=== PATIENT | female | born 1960 | race Caucasian/White ===

== ENCOUNTER 2017-04-01 06:52 | Day surgery (SDC) | payer MEDICAID ==
[2017-04-01] MEDS ORDERED: LR 1,000 ML IV ONE (07:30)
[2017-04-01] MEDS ORDERED: MIDAZOLAM 2 MG/2 ML VIAL IVP ONE (07:33)
--- NOTE | 2017-04-01 07:33 | PDANEPAE ---
ANE History of Present Illness presents for screening colonoscopy ANE Past Medical History - Cardiovascular History Hx Hypertension: No Hx Arrhythmias: No Hx Chest Pain: No Hx Coronary Artery / Peripheral Vascular Disease: No Hx CHF / Valvular Disease: No Hx Palpitations: No - Pulmonary History Hx COPD: No Hx Asthma/Reactive Airway Disease: No Hx Recent Upper Respiratory Infection: No Hx Oxygen in Use at Home: No Hx Sleep Apnea: No Sleep Apnea Screening Result - Last Documented: Negative - Neurologic History Hx Cerebrovascular Accident: No Hx Seizures: No Hx Dementia: No - Endocrine History Hx Diabetes: No Obesity: no - Renal History Hx Renal Disorders: No - Liver History Hx Hepatic Disorders: No - Neurological & Psychiatric Hx Hx Neurological and Psychiatric Disorders: No - Cancer History Hx Cancer: No - Congenital Disorder History Hx Congenital Disorders: No - GI History GERD: no Hx Gastrointestinal Disorders: No - Other Health History Other Health History: NONE - Chronic Pain History Chronic Pain: No - Surgical History Prior Surgeries: 2 acls, c sections hip replacement ANE Review of Systems Review of systems is: negative Review of Systems: - Exercise capacity METS (RN): 5 METS ANE Patient History - Allergies Allergies/Adverse Reactions: No Known Allergies Allergy (Verified 03/25/17 11:29) - Home Medications Home medications: home medication list seen and reviewed - Anes Hx Anes Hx: no prior problems - Smoking Hx Smoking Status: Former smoker - Family Anes Hx Family Hx Anesthesia Complications: none ANE Labs/Vital Signs - Vital Signs Blood Pressure: 152/98 Heart Rate: 76 Respiratory Rate: 16 O2 Sat (%): 96 Height: 167.64 cm Weight: 83.915 kg ANE Physical Exam - Airway Neck exam: FROM Mallampati Score: Class 1 Mouth exam: normal dental/mouth exam - Pulmonary Pulmonary: no respiratory distress - Cardiovascular Cardiovascular: regular rate and rhythym - ASA Status ASA Status: I ANE Anesthesia Plan Anesthesia Plan: GA with mask
[2017-04-01] MEDS ORDERED: PROPOFOL/EMULSION 500 MG/50 ML BOTTLE IV ONE (07:44)
--- NOTE | 2017-04-01 08:02 | PDGENHP ---
History & Physical Chief Complaint: Screening colonoscopy Relevant Physical Exam: GEN: NAD. Cardiac: RRR. Lungs: CTA B. Abd: Soft, nt, nd
[2017-04-01] MEDS ORDERED: OXYCODONE/APAP 5/325 TAB PO PRN (08:30)
[2017-04-01] MEDS ORDERED: ALBUTEROL 3 ML DEYVIAL IH PRN (08:30)
[2017-04-01] MEDS ORDERED: ACETAMINOPHEN 500 MG TAB PO PRN (08:30)
[2017-04-01] MEDS ORDERED: ONDANSETRON 4 MG/2 ML VIAL IVP PRN (08:30)
[2017-04-01] MEDS ORDERED: NALOXONE HCL 0.4 MG/ML INJ IVP PRN (08:30)
[2017-04-01] MEDS ORDERED: LABETALOL HCL 50 MG/10 ML SYR IVP PRN (08:30)
[2017-04-01] MEDS ORDERED: LR 500 ML IV PRN (08:30)
--- NOTE | 2017-04-01 08:32 | POSTANESTH ---
Post Anesthetic Evaluation Cardiovascular Status: Normal, Stable Respiratory Status: Normal, Stable Level of Consciousness/Mental Status: Can Participate in Eval Pain Control: Adequate, Prn Tx Ordered Nausea/Vomiting Control: Adequate, Prn Tx Ordered Complications Possibly Related to Anesthesia: None Noted
--- NOTE | 2017-04-01 08:53 | GIREPORT ---
Corrected report: kan. account number, 04/02/2017,skb [facility] - Endoscopy Department Patient Name: Ag Mercado Procedure Date: 04/01/2017 8:21 AM Patient Type: Outpatient Attending / STEFANY Physician : Willem Khan MD Procedure: Colonoscopy Indications: Screening for colorectal malignant neoplasm. 1st screening colonoscopy. Providers: Willem Khan MD Medicines: Monitored Anesthesia Care Complications: No immediate complications. Description of Procedure: After obtaining informed consent, the scope was passed under direct vision. Throughout the procedure, the patient's blood pressure, pulse, and oxygen saturations were monitored continuously. The Colonoscope with irrigation channel was introduced through the anus and advanced to the terminal ileum, with identification of the appendiceal orifice and IC valve. The colonoscopy was performed without difficulty. The patient tolerated the procedure well. The quality of the bowel preparation was good. Findings: The perianal and digital rectal examinations were normal. The terminal ileum appeared normal. A few small-mouthed diverticula were found in the sigmoid colon and descending colon. Four sessile polyps were found in the sigmoid colon, hepatic flexure and ascending colon. The polyps were 4 to 9 mm in size. These polyps were removed with a cold snare. Resection and retrieval were complete. Verification of patient identification for the specimen was done by the physician and nurse using the patient's name and date. Estimated blood loss was minimal. The retroflexed view of the distal rectum and anal verge was normal and showed no anal or rectal abnormalities. Estimated Blood Loss: Estimated blood loss: none. Post Op Diagnosis: - The examined portion of the ileum was normal. - Diverticulosis in the sigmoid colon and in the descending colon. - Four 4 to 9 mm polyps in the sigmoid colon, at the hepatic flexure and in the ascending colon, removed with a cold snare. Resected and retrieved. - The distal rectum and anal verge are normal on retroflexion view. Recommendation: - Discharge patient to home (with escort). - Resume previous diet. - Continue present medications. - Repeat colonoscopy date to be determined after pending pathology results are reviewed for surveillance based on pathology results. If 3 or more polyps are found to be adenomatous a repeat colonoscopy in 3 years is recommended. If 1-2 polyps are found to be adenomatous, a repeat colonoscopy in 5 years is recommended. - Await pathology results. Results are available within 10 days. - Thank you for allowing me to participate in the care of your patient. Attending Participation: I personally performed the entire procedure. Willem Khan MD Willem Khan MD 04/01/2017 8:53:17 AM Number of Addenda: 0 Note Initiated On: 04/01/2017 8:21 AM Total Procedure Duration Time 0 hours 23 minutes 42 seconds [email or web address] Corrected report: kan. account number, 04/02/2017,boyd [place]
[2017-04-01 09:24] VITALS: PULSE 62; TEMP 97.3; O2SAT 95
[2017-04-01 09:37] VITALS: BP 168/94; RESP 19
== END 2017-04-01 09:42 | disposition home or self-care (01) ==
LOC: FSGY 06:52
PROVIDERS: ATTEND Internal Medicine Gastroenterology
PROC: 0DJD8ZZ Inspection of Lower Intestinal Tract, Via Natural or Artificial Opening Endoscopic (ICD-10-PCS; principal; 2017-04-01 08:30)
DX: Z12.11 Encounter for screening for malignant neoplasm of colon (principal); D12.4 Benign neoplasm of descending colon; D12.2 Benign neoplasm of ascending colon; D12.3 Benign neoplasm of transverse colon; K63.5 Polyp of colon
CPT/HCPCS: J2250; J2704

== ENCOUNTER → 2017-04-08 | Outpatient (CLI) | payer MEDICAID | LOC: FIMAGING 08:39 | PROVIDERS: ATTEND Physician Assistant Medical | DX: R92.1 Mammographic calcification found on diagnostic imaging of breast (principal) | CPT/HCPCS: G0204 ==